=== PATIENT | male | born 1990 | race Caucasian/White ===

== ENCOUNTER 2021-04-27 22:41 | Observation (INO) | payer BC ==
[~2021-04-27] VITALS: Ht 175.3 cm; Wt 104.3 kg
[2021-04-27] MEDS ORDERED: MORPHINE SULFATE INJ 2 MG/ML SYR IV STA (22:48)
[2021-04-27] MEDS ORDERED: ONDANSETRON HCL INJ 2MG/ML 2ML 2 MG/ML VIAL IV STA (22:48)
[2021-04-27 23:00] LABS: BASOPHILS # (AUTO) 0.1 (0.0-0.1); BASOPHILS % 0.5 % (0.0-1.0); EOSINOPHILS # (AUTO) 0.1 (0.0-0.4); EOSINOPHILS % 0.6 % (0.0-6.0); HEMATOCRIT 42.5 % (38.2-49.6); HEMOGLOBIN 15.1 g/dL (14.0-18.0); LYMPHOCYTES # (AUTO) 2.4 (1.0-3.2); LYMPHOCYTES % 21.5 % (18.0-39.1); MEAN CORPUSCULAR HEMOGLOBIN 33.3 pg (28-32); MEAN CORPUSCULAR HGB CONC 35.5 g/dL (31-35); MEAN CORPUSCULAR VOLUME 93.8 fL (81-99); MONOCYTES # (AUTO) 0.8 (0.2-0.8); MONOCYTES % 6.8 % (4.4-11.3); NEUTROPHILS # (AUTO) 7.8 (2.1-6.9); NEUTROPHILS % 70.2 % (38.7-80.0); PLATELET COUNT 277 x10e3/uL (140-360); RED BLOOD COUNT 4.53 x10e6/uL (4.3-5.7); RED CELL DISTRIBUTION WIDTH 12.5 % (11.7-14.4)
[2021-04-27] MEDS ORDERED: NITROGLYCERIN 2% OINT 1 GM PKT TOP ONE (23:00)
[2021-04-27] MEDS ORDERED: ASPIRIN 81 MG CHEW TAB PO ONE (23:00)
[2021-04-27 23:11] LABS: INR 0.99; PROTHROMBIN TIME 13.7 seconds (11.9-14.5)
[2021-04-27 23:12] LABS: PARTIAL THROMBOPLASTIN TIME 27.1 seconds (23.8-35.5)
[2021-04-27] MEDS ORDERED: ONDANSETRON HCL INJ 2MG/ML 2ML 2 MG/ML VIAL ONE (23:12)
[2021-04-27] MEDS ORDERED: ASPIRIN 81 MG CHEW TAB ONE (23:12)
[2021-04-27 23:21] LABS: ALBUMIN 4.6 g/dL (3.5-5.0); ALBUMIN/GLOBULIN RATIO 1.2 (0.8-2.0); ANION GAP 16.8 mmol/L (8-16); CALCIUM 9.3 mg/dL (8.4-10.2); CREATININE, SERUM 1.05 mg/dL (0.72-1.25); POTASSIUM 3.8 mmol/L (3.5-5.1)
[2021-04-27 23:30] LABS: CREATINE KINASE MB 0.8 ng/mL (0-5.0)
[2021-04-28] MEDS ORDERED: ACETAMINOPHEN 325 MG TAB PO PRN (01:45)
[2021-04-28 01:50] VITALS: BP 136/76
[2021-04-28] MEDS ORDERED: ACETAMINOPHEN 325 MG TAB ONE (01:54)
[2021-04-28 02:26] VITALS: BP 136/76
[2021-04-28 02:37] VITALS: BP 136/76
[2021-04-28] MEDS ORDERED: CLOPIDOGREL75 MG PO (02:45)
[2021-04-28] MEDS ORDERED: LOSARTAN POTASS25 MG PO (02:45)
[2021-04-28] MEDS ORDERED: HYDROCHLOROTHIA25 MG PO (02:45)
[2021-04-28] MEDS: ONDANSETRON HCL INJ 2MG/ML 2ML 2 MG/ML VIAL IV PRN ×2 (02:56→07:46)
[2021-04-28] MEDS: MORPHINE SULFATE INJ 2 MG/ML SYR IV PRN ×2 (02:56→07:46)
[2021-04-28] MEDS: NITROGLYCERIN 2% OINT 1 GM PKT TOP SCH ×2 (06:11→11:34)
[2021-04-28 07:52] VITALS: BP 127/70
[2021-04-28 08:16] LABS: CREATINE KINASE MB 0.6 ng/mL (0-5.0)
[2021-04-28 08:33] VITALS: BP 127/70
[2021-04-28 11:11] VITALS: BP 122/68
[2021-04-28] MEDS ORDERED: CLOPIDOGREL BISULFATE 75 MG TAB PO SCH (11:15)
[2021-04-28] MEDS ORDERED: ASPIRIN 81 MG CHEW TAB PO SCH (11:30)
== END 2021-04-28 12:48 | disposition home or self-care (01) ==
LOC: ER 22:45 → ERHOLD 04-28 00:06 → MED/SURG 04-28 02:14
DX: R07.89 Other chest pain (principal); I25.10 Atherosclerotic heart disease of native coronary artery without angina pectoris; I10 Essential (primary) hypertension; E78.5 Hyperlipidemia, unspecified; Z87.891 Personal history of nicotine dependence; Z95.5 Presence of coronary angioplasty implant and graft; Z20.822 Contact with and (suspected) exposure to COVID-19
CPT/HCPCS: 36415 ×2; 71045; 80053; 82550 ×2; 82553 ×2; 83880; 84484 ×2; 85025; 85379; 85610; 85730; 93005; 99284; G0378; J2270 ×2; J2405 ×2; U0002

== ENCOUNTER 2021-10-01 10:23 | Emergency (ER) | payer BC ==
[~2021-10-01] VITALS: Ht 175.3 cm; Wt 104.3 kg
[~2021-10-01 10:23] MED LIST: CLOPIDOGREL75 MG PO; HYDROCHLOROTHIA25 MG PO; LOSARTAN POTASS25 MG PO
[2021-10-01] MEDS ORDERED: SODIUM CHLORIDE 0.9% 1000ML 1,000 ML IV SCH (10:45)
[2021-10-01 11:05] LABS: BASOPHILS % 0.5 % (0.0-1.0); EOSINOPHILS # (AUTO) 0.3 (0.0-0.4); EOSINOPHILS % 4.3 % (0.0-6.0); HEMATOCRIT 42.8 % (38.2-49.6); HEMOGLOBIN 14.6 g/dL (14.0-18.0); LYMPHOCYTES # (AUTO) 1.8 (1.0-3.2); MEAN CORPUSCULAR HEMOGLOBIN 32.8 pg (28-32); MEAN CORPUSCULAR HGB CONC 34.1 g/dL (31-35); MEAN CORPUSCULAR VOLUME 96.2 fL (81-99); MONOCYTES # (AUTO) 0.5 (0.2-0.8); MONOCYTES % 8.5 % (4.4-11.3); NEUTROPHILS # (AUTO) 3.7 (2.1-6.9); NEUTROPHILS % 58.4 % (38.7-80.0); PLATELET COUNT 226 x10e3/uL (140-360); RED BLOOD COUNT 4.45 x10e6/uL (4.3-5.7); RED CELL DISTRIBUTION WIDTH 12.1 % (11.7-14.4)
[2021-10-01 11:21] LABS: INR 0.99; PARTIAL THROMBOPLASTIN TIME 26.9 seconds (23.8-35.5); PROTHROMBIN TIME 13.9 seconds (11.9-14.5)
[2021-10-01 11:23] LABS: ANION GAP 13.3 mmol/L (8-16); CREATININE, SERUM 1.05 mg/dL (0.72-1.25); POTASSIUM 4.3 mmol/L (3.5-5.1)
[2021-10-01 11:24] LABS: ALBUMIN 4.2 g/dL (3.5-5.0); ALBUMIN/GLOBULIN RATIO 1.3 (0.8-2.0)
[2021-10-01 11:30] LABS: CREATINE KINASE MB 0.4 ng/mL (0-5.0)
[2021-10-01] MEDS ORDERED: IOPAMIDOL 370 MG/ML 200 ML INFUS..BTL INJ ONE (12:20)
[2021-10-01] MEDS ORDERED: SODIUM CHLORIDE 0.9% 100 ML ONE (12:20)
[2021-10-01] MEDS ORDERED: OFLOXACIN5 ML OP (13:40)
[2021-10-01] MEDS ORDERED: PREDNISONE50 MG PO (13:43)
[2021-10-01 13:51] VITALS: BP 129/87
== END 2021-10-01 14:02 | disposition home or self-care (01) ==
LOC: ER 10:28
DX: G51.0 Bell's palsy (principal); I25.10 Atherosclerotic heart disease of native coronary artery without angina pectoris; I25.2 Old myocardial infarction; I10 Essential (primary) hypertension; Z79.02 Long term (current) use of antithrombotics/antiplatelets; Z79.52 Long term (current) use of systemic steroids; Z79.899 Other long term (current) drug therapy; Z98.61 Coronary angioplasty status
CPT/HCPCS: 36415; 70450; 70496; 70498; 71045; 80053; 82550; 82553; 84484; 85025; 85610; 85730; 93005; 99284; J7050; Q9967